=== PATIENT | male | born 1985 | race Two or more races ===

== ENCOUNTER 2024-04-07 16:10 | Emergency (ER) | payer OTHER ==
[~2024-04-07] VITALS: Ht 167.6 cm; Wt 58.1 kg
[2024-04-07] MEDS: KETOROLAC TROMETHAMINE 15 MG/ML VIAL IM ONE (17:00)
[2024-04-07] MEDS ORDERED: KETOROLAC TROMETHAMINE 15 MG/ML VIAL ONE (17:03)
[2024-04-07 19:01] VITALS: BP 121/91; TEMP 98; O2SAT 98
== END 2024-04-07 19:01 | disposition home or self-care (01) ==
LOC: ER 16:16
DX: M25.562 Pain in left knee (principal); M25.522 Pain in left elbow; R10.84 Generalized abdominal pain; R07.89 Other chest pain; V49.88XA Car occupant (driver) (passenger) injured in other specified transport accidents, initial encounter; Y93.89 Activity, other specified; Y92.89 Other specified places as the place of occurrence of the external cause; Y99.8 Other external cause status
CPT/HCPCS: 99285; 70450; 96372; 73080; 73564; 74176; J1885